=== PATIENT | male | born 1995 | race African-American/Black ===

== ENCOUNTER 2018-05-29 13:58 | Emergency (ER) | payer SELFPAY ==
--- NOTE | 2018-05-29 14:35 | ER Document Report ---
ED Medical Screen (RME) - General Chief Complaint: Abdominal Pain Stated Complaint: ABDOMINAL PAIN Time Seen by Provider: 05/29/18 14:29 Primary Care Provider: PHYLLIS GONZALEZ MD [Primary Care Provider] - Follow up as needed Notes: 22-year-old -[place]inames[place] male coming in today with chief complaint of anal pain as well as pus coming from his penis. Symptoms for 2 or 3 days. Patient states he has male and female partners. No fevers or chills. No nausea vomiting or diarrhea. States occasional blood in his stool when he wipes. I have treated and performed a rapid initial assessment of this patient. A comprehensive ED assessment and evaluation of the patient, analysis of test results and completion of medical decision making process will be conducted by additional ED providers. PHYSICAL EXAMINATION: GENERAL: Well-appearing, well-nourished and in no acute distress. A&Ox4. Answers questions appropriately. Extremities: No cyanosis, clubbing, or edema b/l. NEUROLOGICAL: Normal speech, normal gait. PSYCH: Normal mood, normal affect. TRAVEL OUTSIDE OF THE [place] IN LAST 30 DAYS: No - Related Data Allergies/Adverse Reactions: No Known Allergies Allergy (Verified 05/29/18 14:28) Past Medical History - Immunizations Immunizations up to date: Yes Hx Diphtheria, Pertussis, Tetanus Vaccination: Yes Physical Exam - Vital signs Vitals: Temp Pulse Resp BP Pulse Ox 98.2 F 63 16 131/74 H 99 05/29/18 14:26 05/29/18 14:26 05/29/18 14:26 05/29/18 14:26 05/29/18 14:26 Course - Vital Signs Vital signs: Temp Pulse Resp BP Pulse Ox 98.2 F 63 16 131/74 H 99 05/29/18 14:26 05/29/18 14:26 05/29/18 14:05/29/18 14:05/29/18 14:26 Doctor's Discharge - Discharge Referrals: PHYLLIS GONZALEZ MD [Primary Care Provider] - Follow up as needed
[2018-05-29 15:26] LABS: APPEARANCE,URINE CLOUDY; BILIRUBIN,URINE NEGATIVE (NEGATIVE); COLOR,URINE YELLOW; GLUCOSE, URINE NEGATIVE (NEGATIVE); KETONES,URINE NEGATIVE (NEGATIVE); LEUKOCYTE ESTERASE,URINE LARGE (NEGATIVE); NITRITE,URINE NEGATIVE (NEGATIVE); PROTEIN,URINE NEGATIVE (NEGATIVE); URINE SPECIFIC GRAVITY 1.026; UROBILINOGEN,URINE NEGATIVE mg/dL (<2.0)
[2018-05-29] MEDS ORDERED: CEFTRIAXONE INJ 250 MG VIAL IM ONE (15:57)
[2018-05-29] MEDS ORDERED: AZITHROMYCIN 250 MG TABLET PO ONE (15:58)
[2018-05-29] MEDS ORDERED: METRONIDAZOLE 500 MG TABLET PO ONE (15:58)
--- NOTE | 2018-05-29 16:11 | ER Document Report ---
ED General - General Chief Complaint: Abdominal Pain Stated Complaint: ABDOMINAL PAIN Time Seen by Provider: 05/29/18 14:29 Primary Care Provider: PHYLLIS GONZALEZ MD [COMMUNITY BASED STAFF] - Follow up as needed Mode of Arrival: Ambulatory Information source: Patient TRAVEL OUTSIDE OF THE [place] IN LAST 30 DAYS: No - HPI Patient complains to provider of: Anal pain and purulent drainage from his penis Onset: Other - 3 days Onset/Duration: Persistent Quality of pain: Sharp Severity: Severe Pain Level: 4 Associated symptoms: denies: Chills, Fever Exacerbated by: Denies Relieved by: Denies Similar symptoms previously: No Recently seen / treated by doctor: No Notes: 22-year-old -Italian male coming in today with chief complaint of anal pain and pus coming from his penis for the past 2-3 days. No fevers or chills. History of male and female sex partners. No personal history of STDs before. Patient further reports in the privacy of the exam room that he had passed the top of a "Welsh soda bottle" into his anus and rectum. This was several days ago. He also took an object that he had inserted in his anus and then proceeded to stimulate his penis with it and he does not think he cleaned it very well. - Related Data Allergies/Adverse Reactions: No Known Allergies Allergy (Verified 05/29/18 14:28) Past Medical History - General Information source: Patient - Social History Smoking Status: Never Smoker Frequency of alcohol use: None Drug Abuse: None Family History: Reviewed & Not Pertinent Patient has suicidal ideation: No Patient has homicidal ideation: No Renal/ Medical History: Denies: Hx Peritoneal Dialysis - Immunizations Immunizations up to date: Yes Hx Diphtheria, Pertussis, Tetanus Vaccination: Yes Review of Systems - Review of Systems Notes: Constitutional: No fevers. No chills. EENT: No eye redness. No eye pain. No ear pain. No sore throat. Cardiovascular: No chest pain. No palpitations. Respiratory: No cough. No shortness of breath. No respiratory distress. Gastrointestinal: Positive for anal pain Genitourinary: Positive for penile discharge Musculoskeletal: Atraumatic. No swelling. No deformities. Skin: No rash or lesions. Lymphatic: No swollen lymph nodes. Neurologic: No headache. No syncope. Psychiatric: No suicidal or homicidal ideation. Physical Exam - Vital signs Vitals: Temp Pulse Resp BP Pulse Ox 98.2 F 63 16 131/74 H 99 05/29/18 14:05/29/18 14:05/29/18 14:05/29/18 14:05/29/18 14:26 - Notes Notes: General: Well-developed, well-nourished. In no acute distress. Non-toxic appearing. Cardiac: Well-perfused. Regular rate and rhythm. No murmurs, rubs, or gallops. Pulmonary: No respiratory distress. No cyanosis. Bilateral lung fiels are clear to auscultation. Abdominal: Non-distended. Non-rigid. Bowels sounds are present in all four quadrants. No guarding or rebound. Anus is visualized no blood at the surface. Tone is good HEENT: Head is atraumatic. Conjunctivae not reddened. No tearing. PERRL. EOMI. Orbits atraumatic. No periorbital swelling or erythema. Oropharynx is without erythema, swelling, or exudates. Neck: Supple. No adenopathy. No meningismus. Dermatologic: Warm with good turgor. No rash. Atraumatic. Chest: Atraumatic. No chest wall tenderness to palpation. Musculoskeletal: Moves all extremities well. No range of motion deficits. no muscular or joint tenderness. No paraspinal muscle tenderness. no midline spinal tenderness or step-off. Genitourinary: No testicular masses. External genitalia normal. No lesions on the scrotum or the penis. Penis is uncircumcised. There is a scant amount of milky white fluid at the urethra. Neurologic: No gross neurologic deficits. Psychiatric: Normal mood. Course - Re-evaluation Re-evalutation: 05/29/18 16:13 I will give him the usual STD cocktail here. We will also put him on doxycycline 100 mg twice a day for a week to treat for urethritis and proctitis. We will give him some Anusol hydrocortisone suppositories for his rectal pain. He is encouraged not to do this type of behavior in the future - Vital Signs Vital signs: Temp Pulse Resp BP Pulse Ox 98.2 F 63 16 131/74 H 99 05/29/18 14:26 05/29/18 14:05/29/18 14:05/29/18 14:26 05/29/18 14:26 - Laboratory Laboratory results interpreted by me: 05/29/18 14:36 Ur Leukocyte Esterase LARGE H Urine Ascorbic Acid 40 H Discharge - Discharge Clinical Impression: Urethritis, Proctitis Condition: Good Disposition: HOME, SELF-CARE Instructions: Urethritis ([facility]), Anal Fissure ([facility]) Additional Instructions: Please do not insert dirty objects in your anus or in your penis. Be sure to start the oral antibiotics today and continue for a week. Also the hydrocortisone suppositories can be used twice a day for a week and year rectum. Please follow-up with the [facility] in a couple of days. Prescriptions: Doxycycline Hyclate 100 mg PO BID #14 capsule Hydrocortisone Acetate [Anusol Hc 25 mg Supp.rect] 1 supp.rect DE BID #14 supp.rect Referrals: PHYLLIS GONZALEZ MD [COMMUNITY BASED STAFF] - Follow up as needed [facility] [Provider Group] - Follow up as needed
[2018-05-29 16:31] VITALS: BP 146/79
[2018-05-29 16:50] LABS: CHLAM PCR NOT DETECTED (NOT DETECT); GON PCR DETECTED (NOT DETECT)
== END 2018-05-29 16:44 | disposition home or self-care (01) ==
LOC: ER 13:58
DX: K62.89 Other specified diseases of anus and rectum (principal); N34.2 Other urethritis
CPT/HCPCS: 99284; 96372; 81001; 87491; 87591; J0696